=== PATIENT | female | born 2000 | race African-American/Black ===

== ENCOUNTER 2024-09-09 03:32 | Emergency (ER) | payer OTHER ==
[~2024-09-09] VITALS: Ht 172.7 cm; Wt 77.3 kg
[2024-09-09 03:40] VITALS: BP 111/68; PULSE 88; RESP 18; TEMP 98.2; O2SAT 98
--- NOTE | 2024-09-09 04:31 | ED.PDOC ---
Foreign Body HPI Comments PATIENT STATES SHE HAS HAD GLASS STUCK IN HER RIGHT POSTERIOR FOREARM FOR 2 YEARS. STATES THE GLASS HAS STARTED TO SURFACE SINCE THE BEGINNING OF THE YEAR. PATIENT HAS BLACKENED AREA, PROTRUDING FROM THE SKIN Chief Complaint: Foreign Body Time Seen by MD: 03:58 History of Present Illness: Nurses Notes, Medications, Allergies Allergies: Coded Allergies: NO KNOWN ALLERGIES (Unverified , 09/09/24) Mode of Arrival: Ambulatory Past Medical History PAST MEDICAL HISTORY: Denies Surgical History: Denies all surgeries STABBER History: No Pertinent STABBER History Family History Family History: Reviewed,noncontributory to illness Social History Smoker: Non-Smoker Alcohol: Denies ETOH Use Drugs: Denies Drug Use Constitutional: denies: chills, diaphoresis, fatigue, fever, malaise, sweats, weakness, others EENTM: denies: blurred vision, double vision, ear bleeding, ear discharge, ear drainage, ear pain, ear ringing, eye pain, eye redness, hearing loss, mouth pain, mouth swelling, nasal discharge, nose bleeding, nose congestion, nose pain, photophobia, tearing, throat pain, throat swelling, voice changes, others Respiratory: denies: cough, hemoptysis, orthopnea, SOB at rest, shortness of breath, SOB with excertion, stridor, wheezing, others Cardiovascular: denies: chest pain, dizzy spells, diaphoresis, Dyspnea on exertion, edema, irregular heart beat, left arm pain, lightheadedness, palpitations, PND, syncope, others Gastrointestinal: denies: abdomen distended, abdominal pain, blood streaked bowels, constipated, diarrhea, dysphagia, difficulty swallowing, hematemesis, melena, nausea, poor appetite, poor fluid intake, rectal bleeding, rectal pain, vomiting, others Genitourinary: denies: abnormal vagina bleeding, burning, dyspareunia, dysuria, flank pain, frequency, hematuria, incontinence, pain, , vagina discharge, urgency, others Neurological: denies: dizziness, fainting, headache, left sided numbness, left sided weakness, numbness, paresthesia, pre-existing deficit, right sided numbness, right sided weakness, seizure, speech problems, tingling, tremors, weakness, others Musculoskeletal: denies: back pain, gout, joint pain, joint swelling, muscle pain, muscle stiffness, neck pain, others Integumetry: reports: lesions; denies: bruises, change in color, change in hair/nails, dryness, laceration, lumps, rash, wounds, others Allergic/Immunocompromised: denies: Difficulty Healing, Frequent Infections, Hives, Itching, others Hematologic/Lymphatic: denies: anemia, blood clots, easy bleeding, easy bruising, swollen glands, others Endocrine: denies: excessive hunger, excessive sweating, excessive thirst, excessive urination, flushing, intolerance to cold, intolerance to heat, unexplained weight gain, unexplained weight loss, others Psychiatric: denies: anxiety, bipolar disorder, depression, hopeless, panic disorder, schizophrenia, sleepless, suicidal, others Physical Exam General Appearance: No Apparent Distress, Normal HEENT: Pharynx Normal Neck: Full Range of Motion, Non-Tender Respiratory: Lungs Clear, No Respiratory Distress, Normal Breath Sounds Cardiovascular: No Murmur, Normal Peripheral Pulses, Regular Rate/Rhythm Breast Exam: Deferred Gastrointestinal: Non Tender, Soft Genitalia: Deferred Pelvic: Deferred Rectal: Deferred Extremities: Normal capillary refill, Normal inspection, Normal range of motion, Non-tender, No pedal edema Musculoskeletal : Apperance: Normal 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 Was a procedure done?: Yes Sedation Sedation?: No Informed consent obtained: Yes Foreign Body Removal Foreign body in: Skin Anesthetic: Nothing Prep: Betadine Procedure: Not Incised, Removed Informed consent obtained: Yes Risks/benefits/alt described: Yes Notes FOREIGN BODY COMPLETELY REMOVED NO PIECES LEFT PATIENT TOLERATED WELL WITH NO BLOOD LOSS FB Differential Dx Differential Diagnosis: Abrasion, Foreign Body, Laceration X-Ray, Labs, Meds, VS Vital Signs Date Time Temp Pulse Resp B/P (MAP) Pulse Ox O2 Delivery O2 Flow Rate FiO2 09/09/24 03:40 98.2 88 18 111/68 (82) 98 98.2 X-Ray, Labs, Meds, VS Comment SEE PROCEDURE NOTE. ENTIRE FOREIGN BODY REMOVED SEE PROCEDURE NOTE, ADVISED TO MONITOR FOR UNCONTROLLED BLEEDING SIGNS AND SYMPTOMS OF INFECTION RETURN TO THE ER. HE IS TO FOLLOW UP WITH HER PCP IN 2-3 DAYS NECESSARY. PATIENT INDICATES UNDERSTANDING AGREES WITH DISCHARGE PLAN OF CARE. Time of 1ST Reevaluation: 04:31 Reevaluation 1ST: Unchanged Time of 2ND Reevaluation: 05:11 Reevaluation 2ND: Improved Patient Education/Counseling: Diagnosis, Treatment, Prognosis, Need For Follow Up Family Education/Counseling: No Family Present Departure 1 Departure Time of Disposition: 05:10 Impression: Primary Impression: Foreign body (FB) in soft tissue Disposition: 01 HOME / SELF CARE / HOMELESS Condition: Stable Discharged With: Self Critical Care Note Critical Care Time?: No Stability Stability form required: MEKA Shirley September 09, 2024 04:31
== END 2024-09-09 05:35 | disposition home or self-care (01) ==
LOC: ER 03:32
DX: M79.5 Residual foreign body in soft tissue (principal)